=== PATIENT | female | born 1995 | race Caucasian/White ===

== ENCOUNTER → 2023-02-02 | Outpatient (CLI) | payer OTHER ==
[~2023-02-02] MED LIST: ALBU90OI INH; AMOC200S75 PO; AMOCLA400S PO; AZIT200SU PO; BIRTHCONTROL; Bactrim Ds Tab1 EACH PO; CEPH500 PO; CODACEE120 PO; CRUTCH4 USE; CYCL10 PO; DIPH12.5EL PO; GUAI100SY; KEFLEX500 MG PO; NEOPOLHYDS OT; Norco 5-325 Ta1 EACH PO; PRED20 PO; SULTRIEL PO
== END | disposition home or self-care (01) ==
LOC: LAB 12:00 → LAB SHORT 12:00
PROVIDERS: Family Medicine
DX: Z12.4 Encounter for screening for malignant neoplasm of cervix (principal)
CPT/HCPCS: G0145

== ENCOUNTER → 2023-05-15 | Outpatient (CLI) | payer OTHER | LOC: LAB 15:04 | DX: R07.81 Pleurodynia (principal) ==

== ENCOUNTER 2024-03-30 00:01 | Emergency (ER) | payer BC ==
[~2024-03-30] VITALS: Ht 167.6 cm; Wt 117.9 kg
[2024-03-30 00:12] VITALS: BP 139/93
[2024-03-30] MEDS ORDERED: Famotidine 10 MG/ML 2ML Vial IV ONE (01:35)
[2024-03-30] MEDS ORDERED: Mag Hydrox/AL Hydrox/Simeth 30 ML UDC PO ONE (01:35)
[2024-03-30] MEDS ORDERED: Lidocaine 2% Viscous Soln 15 ML UDC PO ONE (01:35)
[2024-03-30 02:10] LABS: Albumin, Blood 3.8 g/dL (3.4-5.0); Albumin/Globulin Ratio 0.9 (0.8-1.8); BASOPHILS ABSOLUTE AUTO 0.05 K/mm3 (0.00-0.23); BASOPHILS PERCENT AUTO 0 % (0-2); Bilirubin, Total 0.3 mg/dL (0.1-1.0); Bun/Creatinine Ratio 24.8 (12.0-20.0); Calcium, Blood 9.1 mg/dL (8.5-10.1); Creatinine, Blood 0.77 mg/dL (0.40-1.00); EOSINOPHILS ABSOLUTE AUTO 0.14 K/mm3 (0.00-0.68); EOSINOPHILS PERCENT AUTO 1 % (0-6); Globulin, Blood 4.3 g/dL (2.2-4.0); Hematocrit 40.6 % (33.0-51.0); Hemoglobin 14.1 g/dL (11.5-16.0); IMMATURE GRAN ABSOLUTE AUTO 0.05 K/mm3 (0.00-0.10); IMMATURE GRAN PERCENT AUTO 0 % (0-1); LYMPHOCYTES ABSOLUTE AUTO 1.63 K/mm3 (0.84-5.20); LYMPHOCYTES PERCENT AUTO 13 % (21-46); MONOCYTES PERCENT AUTO 8 % (4-13); Mean Corpuscular HGB 31.6 pg (26.0-34.0); Mean Corpuscular HGB Conc 34.7 g/dL (31.5-36.5); Mean Corpuscular Volume 91 fL (80-100); Mean Platelet Volume 9.7 fL (9.1-12.4); NEUTROPHILS ABSOLUTE AUTO 9.59 K/mm3 (1.96-9.15); NEUTROPHILS PERCENT AUTO 77 % (41-73); Platelet Count 328 K/mm3 (150-400); Potassium, Blood 3.9 mmol/L (3.5-5.5); RDW Standard Deviation 39.9 fL (35.1-46.3); Red Blood Cell Count 4.46 M/mm3 (3.80-5.20); Total Protein, Blood 8.1 g/dL (6.4-8.2); White Blood Cell Count 12.46 K/mm3 (4.00-11.30)
[2024-03-30] MEDS ORDERED: ALMACONE SUSPE355 ML PO (02:26)
[2024-03-30] MEDS ORDERED: FAMO20 PO (02:26)
== END 2024-03-30 02:41 | disposition home or self-care (01) ==
LOC: ER 00:01
PROVIDERS: Emergency Medicine
DX: R07.2 Precordial pain (principal); K21.9 Gastro-esophageal reflux disease without esophagitis; Z68.41 Body mass index [BMI] 40.0-44.9, adult; Z79.2 Long term (current) use of antibiotics; Z88.1 Allergy status to other antibiotic agents; Z88.8 Allergy status to other drugs, medicaments and biological substances
CPT/HCPCS: 80053; 81025; 84484; 85025; 93005; 93010; 96374; 99285-25; A9270